=== PATIENT | female | born 1935 | race Two or more races ===

== ENCOUNTER 2017-07-02 11:07 | Outpatient (CLI) | payer MEDICARE ==
--- NOTE | 2017-07-02 12:19 | Diagnostic Imaging Report ---
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 The lungs and pleural spaces are clear. Heart size is normal. There is thoracic kyphosis without evidence of focal compression abnormality. The bones are osteoporotic Impression: No acute process
== END 2017-07-02 13:07 | disposition home or self-care (01) ==
LOC: RAD 11:07
DX: R05 Cough (principal); M81.0 Age-related osteoporosis without current pathological fracture; M40.204 Unspecified kyphosis, thoracic region
CPT/HCPCS: 71020